=== PATIENT | female | born 1985 | race Caucasian/White ===

== ENCOUNTER 2025-02-08 17:21 | Inpatient (IN) | payer OTHER ==
[~2025-02-08] VITALS: Ht 167.6 cm; Wt 64.1 kg
[2025-02-08 17:56] LABS: PLATELET COUNT (AUTO) 303 K/uL (150-450); RED BLOOD CELL COUNT(AUTO) 3.94 MIL/uL (4.00-5.20); RED CELL DISTRIBUTION WIDTH 15.0 % (11.5-14.5); WHITE BLOOD COUNT (AUTO) 7.3 K/uL (4.5-11.0)
[2025-02-08 18:03] LABS: CALCIUM, TOTAL 8.6 mg/dL (8.8-10.5); CREATININE 0.66 mg/dL (0.60-1.30); GLOMERULAR FILTR. RATE CALC > 60 mL/min (>60); GLUCOSE,RANDOM 104 mg/dL (70-110); SODIUM SERUM 133 mmol/L (136-145); UREA NITROGEN, BLOOD 10 mg/dL (7-18)
[2025-02-08] MEDS: LORazepam 2 MG/ML VIAL IM ONE (18:03)
[2025-02-08] MEDS: DOCUSATE SODIUM 100 MG CAPSULE PO SCH (21:00)
[2025-02-08 21:07] VITALS: BP 121/94; PULSE 61; RESP 20; TEMP 98.1; O2SAT 99
[2025-02-09] MEDS: HEPARIN SODIUM,PORCINE 5,000 UNITS/ML VIAL SQ SCH
[2025-02-09] MEDS: BUPRENORPHINE HCL/NALOXONE HCL 2-0.5 MG SUBLINGUAL TABLET SL ONE (01:39)
[2025-02-09] MEDS: DIAZEPAM 5 MG/ML 2 ML SYRINGE IVP ONE (01:43)
[2025-02-09 04:15] VITALS: BP 125/74; PULSE 80; RESP 20; TEMP 98.2; O2SAT 99
[2025-02-09 07:12] LABS: CALCIUM, TOTAL 8.7 mg/dL (8.8-10.5); CREATININE 0.72 mg/dL (0.60-1.30); GLOMERULAR FILTR. RATE CALC > 60 mL/min (>60); GLUCOSE,RANDOM 98 mg/dL (70-110); SODIUM SERUM 135 mmol/L (136-145); UREA NITROGEN, BLOOD 9 mg/dL (7-18)
[2025-02-09 07:26] LABS: APPEARANCE,URINE HAZY (CLEAR); GLUCOSE, URINE (UA) NEGATIVE (NEGATIVE); LEUKOCYTE ESTERASE ,URINE LARGE (NEGATIVE); NITRATE,URINE POSITIVE (NEGATIVE); OCCULT BLOOD,URINE NEGATIVE (NEGATIVE); PH,URINE DRUG SCREEN 7.0 (5.0-8.0); SPECIFIC GRAVITIY, URINE 1.011 (1.003-1.030)
[2025-02-09 07:32] LABS: ALCOHOL, URINE DRUG SCREEN NEGATIVE (NEGATIVE); AMPHET/METH SCREEN,URINE POSITIVE (NEGATIVE); BARBITURATE SCREEN, URINE NEGATIVE (NEGATIVE); CANNABINOID SCREEN,URINE POSITIVE (NEGATIVE); COCAINE SCREEN,URINE NEGATIVE (NEGATIVE); METHADONE SCREEN, URINE NEGATIVE (NEGATIVE)
[2025-02-09 07:33] LABS: SQUAMOUS EPITHELIAL CELL,UR Few /LPF (None Seen)
[2025-02-09 07:42] LABS: PLATELET COUNT (AUTO) 288 K/uL (150-450); RED BLOOD CELL COUNT(AUTO) 4.16 MIL/uL (4.00-5.20); RED CELL DISTRIBUTION WIDTH 14.8 % (11.5-14.5); WHITE BLOOD COUNT (AUTO) 9.2 K/uL (4.5-11.0)
[2025-02-09 08:00] VITALS: BP 131/87; PULSE 68; RESP 18; TEMP 98; O2SAT 100
[2025-02-09] MEDS ORDERED: SODIUM CHLORIDE 0.9% 250 ML IV ONE (13:31)
[2025-02-09] MEDS: CefTRIAXone 1 GM/DEXTROSE 50 ML IV SCH (13:34)
[2025-02-09] MEDS ORDERED: LOPERAMIDE HCL 2 MG CAPSULE PO PRN (14:00)
[2025-02-09] MEDS: LORazepam 2 MG/ML VIAL IVP PRN (15:24)
[2025-02-09] MEDS: ONDANSETRON HCL 4 MG/2 ML VIAL IVP PRN (17:40)
[2025-02-09 18:15] VITALS: BP 151/97; PULSE 87; RESP 18; TEMP 98; O2SAT 100
[2025-02-09 20:00] VITALS: BP 128/86; PULSE 68; RESP 19; TEMP 99.5; O2SAT 99
[2025-02-09] MEDS: ACETAMINOPHEN 325 MG TABLET PO PRN (20:19)
[2025-02-09] MEDS: TEMAZEPAM 15 MG CAPSULE PO SCH (20:19)
[2025-02-09] MEDS: METOCLOPRAMIDE HCL 5 MG/ML 2 ML VIAL IVP PRN (21:53)
[2025-02-09 22:30] VITALS: TEMP 98.8
[2025-02-10 05:06] VITALS: BP 127/98; PULSE 88; RESP 18; TEMP 98.4; O2SAT 98
[2025-02-10 08:27] VITALS: BP 121/85; PULSE 88; RESP 18; TEMP 98.1; O2SAT 98
[2025-02-10 19:21] VITALS: BP 114/80; PULSE 99; RESP 18; TEMP 99; O2SAT 97
[2025-02-10] MEDS: DICYCLOMINE HCL 10 MG CAPSULE PO PRN (22:08)
[2025-02-11] MEDS: ZOLPIDEM TARTRATE 10 MG TABLET PO ONE (01:25)
[2025-02-11 05:11] VITALS: BP 132/95; PULSE 99; RESP 18; TEMP 99.5; O2SAT 96
[2025-02-11 06:57] LABS: PLATELET COUNT (AUTO) 326 K/uL (150-450); RED BLOOD CELL COUNT(AUTO) 4.54 MIL/uL (4.00-5.20); RED CELL DISTRIBUTION WIDTH 14.8 % (11.5-14.5); WHITE BLOOD COUNT (AUTO) 7.0 K/uL (4.5-11.0)
[2025-02-11 07:09] LABS: CALCIUM, TOTAL 8.9 mg/dL (8.8-10.5); CREATININE 0.57 mg/dL (0.60-1.30); GLOMERULAR FILTR. RATE CALC > 60 mL/min (>60); GLUCOSE,RANDOM 95 mg/dL (70-110); SODIUM SERUM 137 mmol/L (136-145); UREA NITROGEN, BLOOD 9 mg/dL (7-18)
[2025-02-11 08:02] VITALS: BP 134/97; PULSE 68; RESP 18; TEMP 97.7; O2SAT 98
[2025-02-11] MEDS ORDERED: CEPH-558 PO (12:55)
[2025-02-11] MEDS ORDERED: TEMA15CA PO (12:56)
[2025-02-11] MEDS ORDERED: HYDR25TA83 PO (12:57)
[2025-02-11 20:00] VITALS: BP 128/78; PULSE 76; RESP 18; TEMP 98.4; O2SAT 98
[2025-02-12] MEDS ORDERED: MELATONIN 5 MG TABLET PO ONE (06:15)
[2025-02-12] MEDS: MELATONIN 5 MG TABLET PO ONE (06:17)
== END 2025-02-12 09:10 | DRG 897 ==
LOC: EMS 17:41 → EDH 19:01 → 6N 20:38
PROVIDERS: ADMIT Internal Medicine; ATTEND Internal Medicine
DX: F11.93 Opioid use, unspecified with withdrawal (principal); E87.1 Hypo-osmolality and hyponatremia; N39.0 Urinary tract infection, site not specified; D64.9 Anemia, unspecified; B96.20 Unspecified Escherichia coli [E. coli] as the cause of diseases classified elsewhere; F41.9 Anxiety disorder, unspecified; Z78.1 Physical restraint status
CPT/HCPCS: 80048; 80307; 81001; 83735; 85025; 87077; 87086; 87186; 96372; 99291; G0480; J0696; J1200; J1630; J1644; J2060; J2405; J2765; J7050

== ENCOUNTER 2025-02-12 22:14 | Emergency (ER) | payer OTHER ==
[~2025-02-12] VITALS: Ht 167.6 cm; Wt 63.6 kg
[~2025-02-12 22:14] MED LIST: CEPH-558 PO; HYDR25TA83 PO; TEMA15CA PO
[2025-02-13 00:02] VITALS: BP 102/83; PULSE 101; RESP 18; TEMP 98.2; O2SAT 100
== END 2025-02-13 01:47 | disposition home or self-care (01) ==
LOC: EMS 22:15
DX: Z02.89 Encounter for other administrative examinations (principal); R91.1 Solitary pulmonary nodule; F10.90 Alcohol use, unspecified, uncomplicated; Y90.9 Presence of alcohol in blood, level not specified
CPT/HCPCS: 71045; 71250; 99284

== ENCOUNTER 2025-02-20 16:15 | Inpatient (IN) | payer OTHER ==
[~2025-02-20] VITALS: Ht 172.7 cm; Wt 61.4 kg
[2025-02-20 17:51] LABS: PLATELET COUNT (AUTO) 434 K/uL (150-450); RED BLOOD CELL COUNT(AUTO) 4.96 MIL/uL (4.00-5.20); RED CELL DISTRIBUTION WIDTH 14.8 % (11.5-14.5); WHITE BLOOD COUNT (AUTO) 18.1 K/uL (4.5-11.0)
[2025-02-20 18:00] LABS: CALCIUM, TOTAL 9.5 mg/dL (8.8-10.5); CREATININE 0.83 mg/dL (0.60-1.30); GLOMERULAR FILTR. RATE CALC > 60 mL/min (>60); GLUCOSE,RANDOM 104 mg/dL (70-110); SODIUM SERUM 135 mmol/L (136-145); UREA NITROGEN, BLOOD 13 mg/dL (7-18)
[2025-02-20 20:41] LABS: APPEARANCE,URINE HAZY (CLEAR); GLUCOSE, URINE (UA) NEGATIVE (NEGATIVE); LEUKOCYTE ESTERASE ,URINE LARGE (NEGATIVE); NITRATE,URINE NEGATIVE (NEGATIVE); OCCULT BLOOD,URINE TRACE (NEGATIVE); PH,URINE DRUG SCREEN 5.5 (5.0-8.0); SPECIFIC GRAVITIY, URINE 1.025 (1.003-1.030)
[2025-02-20 20:54] LABS: ALCOHOL, URINE DRUG SCREEN NEGATIVE (NEGATIVE); AMPHET/METH SCREEN,URINE NEGATIVE (NEGATIVE); BARBITURATE SCREEN, URINE NEGATIVE (NEGATIVE); CANNABINOID SCREEN,URINE NEGATIVE (NEGATIVE); COCAINE SCREEN,URINE NEGATIVE (NEGATIVE); METHADONE SCREEN, URINE NEGATIVE (NEGATIVE)
[2025-02-20 21:04] LABS: SQUAMOUS EPITHELIAL CELL,UR Moderate /LPF (None Seen); URINALYSIS COMMENT Few Trichomonas seen
[2025-02-20] MEDS: SODIUM CHLORIDE 0.9% 1,000 ML IV ONE (21:42)
[2025-02-20] MEDS: LORazepam 2 MG/ML VIAL IVP PRN (21:43)
[2025-02-20 23:03] VITALS: BP 93/66; PULSE 109; RESP 19; TEMP 99.3; O2SAT 94
[2025-02-20] MEDS: ZOLPIDEM TARTRATE 5 MG TABLET PO PRN (23:32)
[2025-02-21] MEDS: BENZONATATE 100 MG CAPSULE PO PRN (00:53)
[2025-02-21 04:11] VITALS: BP 139/86; PULSE 121; RESP 21; TEMP 99.9; O2SAT 95
[2025-02-21 05:54] VITALS: BP 125/91; PULSE 114; RESP 20; TEMP 98.8; O2SAT 93
[2025-02-21 08:22] VITALS: BP 130/98; PULSE 103; RESP 18; TEMP 97.9; O2SAT 98
[2025-02-21] MEDS: FAMOTIDINE 20 MG TABLET PO SCH (08:27)
[2025-02-21] MEDS: ONDANSETRON HCL 4 MG/2 ML VIAL IVP PRN (10:04)
[2025-02-21 15:45] VITALS: BP 128/89; PULSE 118; RESP 18; TEMP 99.1; O2SAT 95
[2025-02-21] MEDS: LORazepam 2 MG/ML VIAL IVP ONE (16:55)
[2025-02-21] MEDS: SODIUM CHLORIDE 0.9% 1,000 ML IV ONE (16:55)
[2025-02-21 20:00] VITALS: BP 107/81; PULSE 134; RESP 20; TEMP 99.9; O2SAT 96
[2025-02-21 21:00] VITALS: BP 129/77; PULSE 126; RESP 18; TEMP 99.7; O2SAT 96
[2025-02-21] MEDS: ACETAMINOPHEN 325 MG TABLET PO PRN (21:05)
[2025-02-21] MEDS: PROMETHAZINE HCL 25 MG RECTAL SUPPOSITORY PR ONE (21:45)
[2025-02-22 00:55] VITALS: PULSE 110
[2025-02-22] MEDS: METOCLOPRAMIDE HCL 5 MG/ML 2 ML VIAL IVP ONE (01:14)
[2025-02-22 05:00] VITALS: BP 126/98; PULSE 100; RESP 18; TEMP 98.2; O2SAT 94
[2025-02-22 09:45] VITALS: BP 102/74; PULSE 121; RESP 18; TEMP 99.7; O2SAT 98
[2025-02-22 12:56] LABS: PLATELET COUNT (AUTO) 402 K/uL (150-450); RED BLOOD CELL COUNT(AUTO) 4.37 MIL/uL (4.00-5.20); RED CELL DISTRIBUTION WIDTH 15.1 % (11.5-14.5); WHITE BLOOD COUNT (AUTO) 16.2 K/uL (4.5-11.0)
[2025-02-22] MEDS: CefTRIAXone 1 GM/DEXTROSE 50 ML IV SCH (13:12)
[2025-02-22] MEDS: SODIUM CHLORIDE 0.9% 1,000 ML IV ONE (13:12)
[2025-02-22 17:11] VITALS: BP 114/84; PULSE 125; RESP 18; TEMP 99.5; O2SAT 95
[2025-02-22 18:19] VITALS: PULSE 119
[2025-02-22] MEDS: LORazepam 2 MG/ML VIAL IVP PRN (19:51)
[2025-02-22 20:34] VITALS: BP 110/88; PULSE 111; RESP 20; TEMP 98.2; O2SAT 96
[2025-02-23 04:28] VITALS: BP 108/77; PULSE 113; RESP 18; TEMP 99.5; O2SAT 96
[2025-02-23 08:58] VITALS: BP 107/80; PULSE 124; RESP 18; TEMP 99.7; O2SAT 100
[2025-02-23] MEDS: SODIUM CHLORIDE 0.9% 1,000 ML IV ONE (12:17)
[2025-02-23 13:06] LABS: PLATELET COUNT (AUTO) 458 K/uL (150-450); RED BLOOD CELL COUNT(AUTO) 4.35 MIL/uL (4.00-5.20); RED CELL DISTRIBUTION WIDTH 14.1 % (11.5-14.5); WHITE BLOOD COUNT (AUTO) 16.0 K/uL (4.5-11.0)
[2025-02-23 13:20] LABS: CALCIUM, TOTAL 8.9 mg/dL (8.8-10.5); CREATININE 0.62 mg/dL (0.60-1.30); GLOMERULAR FILTR. RATE CALC > 60 mL/min (>60); GLUCOSE,RANDOM 91 mg/dL (70-110); SODIUM SERUM 136 mmol/L (136-145); UREA NITROGEN, BLOOD 9 mg/dL (7-18)
[2025-02-23] MEDS: MAGNESIUM HYDROXIDE SUSPENSION 30 ML UDCUP PO PRN (17:14)
[2025-02-23 19:53] VITALS: BP 113/83; PULSE 110; RESP 20; TEMP 98.4; O2SAT 97
[2025-02-24 04:50] VITALS: BP 103/79; PULSE 104; RESP 16; TEMP 98.6; O2SAT 97
[2025-02-24 08:03] VITALS: BP 118/95; PULSE 117; RESP 18; TEMP 98.6; O2SAT 100
[2025-02-24] MEDS: SODIUM CHLORIDE 0.9% 1,000 ML IV ONE (11:06)
[2025-02-24] MEDS: LORazepam 2 MG/ML VIAL IVP ONE (14:09)
[2025-02-24 19:56] VITALS: BP 111/81; PULSE 103; RESP 18; TEMP 98.6; O2SAT 97
[2025-02-25 05:14] VITALS: BP 114/78; PULSE 104; RESP 18; TEMP 98.4; O2SAT 97
[2025-02-25 07:11] LABS: PLATELET COUNT (AUTO) 464 K/uL (150-450); RED BLOOD CELL COUNT(AUTO) 4.31 MIL/uL (4.00-5.20); RED CELL DISTRIBUTION WIDTH 14.4 % (11.5-14.5); WHITE BLOOD COUNT (AUTO) 9.1 K/uL (4.5-11.0)
[2025-02-25 07:17] LABS: CALCIUM, TOTAL 8.9 mg/dL (8.8-10.5); CREATININE 0.49 mg/dL (0.60-1.30); GLOMERULAR FILTR. RATE CALC > 60 mL/min (>60); GLUCOSE,RANDOM 93 mg/dL (70-110); SODIUM SERUM 136 mmol/L (136-145); UREA NITROGEN, BLOOD 8 mg/dL (7-18)
[2025-02-25 08:00] VITALS: BP 109/80; PULSE 94; RESP 20; TEMP 98.4; O2SAT 98
[2025-02-25] MEDS ORDERED: CIPR250T6 PO (10:58)
[2025-02-25] MEDS ORDERED: FAMO20 PO (10:59)
[2025-02-25] MEDS ORDERED: ACET-2247 PO (10:59)
[2025-02-25] MEDS ORDERED: MAGN-169 PO (10:59)
[2025-02-25] MEDS: CIPROFLOXACIN HCL 250 MG TABLET PO SCH (11:39)
== END 2025-02-25 18:47 | DRG 897 ==
LOC: EMS 16:16 → EDH 19:35 → 6N 22:50
PROVIDERS: ADMIT Internal Medicine; ATTEND Internal Medicine
DX: F11.13 Opioid abuse with withdrawal (principal); N39.0 Urinary tract infection, site not specified; R65.10 Systemic inflammatory response syndrome (SIRS) of non-infectious origin without acute organ dysfunction; F20.9 Schizophrenia, unspecified; F43.10 Post-traumatic stress disorder, unspecified
CPT/HCPCS: 71045; 80048; 80307; 81001; 84703; 85025; 85379; 87086; 93005; 96360; 99285; J0696; J1630; J2060; J2405; J2765; J7030; 36415-L1; 36415-TC